=== PATIENT | female | born 1970 | race Caucasian/White ===

== ENCOUNTER 2016-08-17 17:00 | Observation (INO) | payer OTHER ==
[~2016-08-17] VITALS: Ht 162.6 cm; Wt 65.0 kg
[2016-08-17 18:48] LABS: URINE BLOOD (Dip) POC Trace-intact (NEGATIVE)
[2016-08-17 19:50] LABS: ADD SCAN DIFF NO; BASOPHILS % 0.4 % (0.0-2.0); EOSINOPHILS # 0.2 10^3/ul (0.0-0.5); EOSINOPHILS % 1.6 % (0.0-7.0); HEMATOCRIT 24.8 % (37.0-47.0); HEMOGLOBIN 7.2 g/dl (12.0-16.0); LYMPHOCYTES # 2.9 10^3/ul (0.8-2.9); LYMPHOCYTES % 30.3 % (15.0-51.0); MEAN CORPUSCULAR VOLUME 75.6 fl (82.0-101.0); MEAN PLATELET VOLUME 11.3 fl (7.4-10.4); MONOCYTE # 0.6 10^3/ul (0.3-0.9); MONOCYTES % 6.6 % (0.0-11.0); NEUTROPHIL # 5.7 10^3/ul (1.6-7.5); NEUTROPHILS % 60.6 % (39.0-77.0); PLATELET COUNT 327 10^3/UL (140-415); RED BLOOD COUNT 3.28 10^6/ul (4.20-5.40); RED CELL DISTRIBUTION WIDTH 17.7 % (11.5-14.5); WHITE BLOOD COUNT 9.4 10^3/ul (4.8-10.8)
[2016-08-17 19:56] LABS: ADD UMIC YES; URINE BILIRUBIN (Dip) NEGATIVE (NEGATIVE); URINE BLOOD (Dip) 1+ (NEGATIVE); URINE COLOR LT. YELLOW (YELLOW); URINE GLUCOSE (Dip) NEGATIVE (NEGATIVE); URINE KETONES (Dip) NEGATIVE (NEGATIVE); URINE LEUKOCYTE ESTERASE (Dip) NEGATIVE (NEGATIVE); URINE NITRITE (Dip) NEGATIVE (NEGATIVE); URINE TOTAL PROTEIN (Dip) NEGATIVE (NEGATIVE); URINE UROBILINOGEN (Dip) 0.2 E.U./dL (0.1-1.0)
[2016-08-17 20:13] LABS: ALBUMIN 3.5 g/dl (3.3-4.9)
[2016-08-17 20:14] LABS: POTASSIUM 3.9 mmol/L (3.5-5.1)
[2016-08-17 20:16] LABS: ALBUMIN/GLOBULIN RATIO 1.12; CREATININE 0.63 mg/dl (0.44-1.00); TOTAL PROTEIN 6.6 g/dl (6.1-8.1)
[2016-08-17 20:17] LABS: CALCIUM 8.6 mg/dl (8.4-10.2); SQUAMOUS EPITHELIAL CELL,UR FEW; URINE RBCS 0-2 /HPF (0)
[2016-08-17] MEDS ORDERED: SOD CHLORIDE 0.9% 1,000 ML IV ONE (20:30)
[2016-08-17] MEDS ORDERED: morphine 4 MG/ML VIAL IV STA ×2 (21:06→23:55)
[2016-08-17] MEDS ORDERED: ONDANSETRON 4 MG INJ IV STA (21:06)
--- NOTE | 2016-08-17 21:51 | RADRPT ---
PROCEDURE: XR Chest. CLINICAL INDICATION: Chest Pain. TECHNIQUE: Frontal views of the chest. COMPARISON: None. FINDINGS: The cardiomediastinal silhouette is within normal limits. The lungs are clear. No signs of pleural f luid or pneumothorax are seen. The osseous structures and soft tissues are unremarkable. IMPRESSION: No evidence for active cardiopulmonary disease. RPTAT: [facility] Physician Patricia Date Time Electronically viewed and signed by Physician Patricia on 08/17/2016 21:51 RS/
--- NOTE | 2016-08-17 22:51 | ERD ---
ER Documentation Chief Complaint Date/Time DATE: 08/17/16 TIME: 22:49 Chief Complaint "weakness for past few days history of blood transufion" HPI This is a 45-year-old female who is here for weakness for the past 2 days with a history of blood transfusion. Patient says she feels very dizzy and passed out 4 times over the past month. No other current complaints. No chest pain. No palpitations. Does complain of shortness of breath on exertion. Denies any other current issues. ROS All systems reviewed and are negative except as per history of present illness. Allergies Allergies: Coded Allergies: No Known Allergy (Unverified , 08/17/16) PMhx/Soc Medical and Surgical Hx: pt denies Surgical Hx History of Surgery: No Anesthesia Reaction: No Hx Neurological Disorder: No Hx Respiratory Disorders: No Hx Cardiac Disorders: No Hx Psychiatric Problems: No Hx Miscellaneous Medical Probl: Yes (ANEMIA, WEAKNESS) Hx Alcohol Use: No Hx Substance Use: No Hx Tobacco Use: No Smoking Status: Never smoker Physical Exam Vitals Vital Signs Date Time Temp Pulse Resp B/P Pulse Ox O2 Delivery O2 Flow Rate FiO2 08/17/16 17:03 97.9 78 18 88/45 100 Physical Exam Const: [] Head: Atraumatic Eyes: Normal Conjunctiva ENT: Normal External Ears, Nose and Mouth. Neck: Full range of motion..~ No meningismus. Resp: Clear to auscultation bilaterally Cardio: Regular rate and rhythm, no murmurs Abd: Soft, non tender, non distended. Normal bowel sounds Skin: No petechiae or rashes Back: No midline or flank tenderness Ext: No cyanosis, or edema Neur: Awake and alert Psych: Normal Mood and Affect Result Diagram: 08/17/16 1852 08/17/16 1845 Results 24 hrs Laboratory Tests Test 08/17/16 18:45 08/17/16 18:49 08/17/16 18:52 Urine Color LT. YELLOW Urine Clarity SLIGHTLY CLOUDY Urine pH 5.5 Urine Specific Volin >=1.030 Urine Ketones NEGATIVE Urine Nitrite NEGATIVE Urine Bilirubin NEGATIVE Urine Urobilinogen 0.2 E.U./dL Urine Leukocyte Esterase NEGATIVE Urine Microscopic RBC 0-2/HPF Urine Microscopic WBC 0-2/HPF Urine Squamous Epithelial Cells FEW Urine Hemoglobin 1+ Urine Glucose NEGATIVE% Urine Total Protein NEGATIVE Sodium Level 142mmol/L Potassium Level 3.9mmol/L Chloride Level 104mmol/L Carbon Dioxide Level 27mmol/L Anion Gap 15 Blood Urea Nitrogen 18mg/dl Creatinine 0.63mg/dl Glucose Level 68mg/dl Calcium Level 8.6mg/dl Total Bilirubin 0.0mg/dl Direct Bilirubin 0.00mg/dl Indirect Bilirubin 0.0mg/dl Aspartate Amino Transf (AST/SGOT) 22IU/L Alanine Aminotransferase (ALT/SGPT) 30IU/L Alkaline Phosphatase 73IU/L Troponin I < 0.012ng/ml Total Protein 6.6g/dl Albumin 3.5g/dl Globulin 3.10g/dl Albumin/Globulin Ratio 1.12 Lipase 141U/L Bedside Urine pH (LAB) 6.0 Bedside Urine Protein (LAB) Negative Bedside Urine Glucose (UA) Negative Bedside Urine Ketones (LAB) Negative Bedside Urine Blood Trace-intact Bedside Urine Nitrite (LAB) Negative Bedside Urine Leukocyte Esterase (L Negative White Blood Count 9.410^3/ul Red Blood Count 3.2810^6/ul Hemoglobin 7.2g/dl Hematocrit 24.8% Mean Corpuscular Volume 75.6fl Mean Corpuscular Hemoglobin 22.0pg Mean Corpuscular Hemoglobin Concent 29.0g/dl Red Cell Distribution Width 17.7% Platelet Count 37813^3/UL Mean Platelet Volume 11.3fl Neutrophils % 60.6% Lymphocytes % 30.3% Monocytes % 6.6% Eosinophils % 1.6% Basophils % 0.4% Nucleated Red Blood Cells % 0.0/100WBC Neutrophils # 5.710^3/ul Lymphocytes # 2.910^3/ul Monocytes # 0.610^3/ul Eosinophils # 0.210^3/ul Basophils # 0.010^3/ul Nucleated Red Blood Cells # 0.010^3/ul Current Medications Medications (Trade) Dose Ordered Sig/Stephen Route PRN Reason Start Time Stop Time Status Last Admin Dose Admin Sodium Chloride (NS) 1,000 ml @ 2,000 mls/hr Q30M ONCE IV 08/17/16 20:30 08/17/16 20:59 DC 08/17/16 20:26 Morphine Sulfate (morphine) 4 mg ONCE STAT IV 08/17/16 21:06 08/17/16 21:07 DC 08/17/16 21:15 Ondansetron HCl (Zofran Inj) 4 mg ONCE STAT IV 08/17/16 21:06 08/17/16 21:07 DC 08/17/16 21:15 Procedures/MDM EKG: Rate/Rhythm: Normal Sinus Rhythm QRS, ST, T-waves: No changes consistent w/ acute ischemia Impression: No evidence of ischemia or arrhythmia Chest X-ray 1V Interpreted by me: Soft Tissue: No acute abnormalities Bones: No acute abnormalities Mediastinum/Cardiac Silhouette/Lungs: No acute abnormalities Patient's syncopal symptoms are unstable at this time and require inpatient workup. No evidence of PE or dissection at this time but occult ischemia or fatal dysrhythmia cannot be ruled out. Patient found to be anemic, typed and crossed for 2 units transfusion. Will be admitted to observation to the hospitalist. Critical Care: Time: 45 minutes Treatments/Evaluations: Close monitoring and treatment of unstable vital signs, cardiorespiratory, and neurologic status, while maintaining tight balance of fluid, respiratory, and cardiac interventions. Departure Diagnosis: Primary Impression: Syncope Syncope type: unspecified Qualified Code: R55 - Syncope, unspecified syncope type Additional Impression: Anemia Anemia type: unspecified type Qualified Code: D64.9 - Anemia, unspecified type Condition: Serious LIZY HERNANDEZ August 17, 2016 22:51
[2016-08-18] VITALS (8 sets, daily range): BP systolic 105–127; BP diastolic 59–75; PULSE 57–70; RESP 16–20; TEMP 97.6; Ht 162.6 cm; Wt 65.0 kg
[2016-08-18] MEDS ORDERED: morphine 2 MG INJ IV PRN (02:00)
[2016-08-18] MEDS ORDERED: ALBUTEROL/IPRATROPIUM (NEB) 3 ML AMP HHN PRN (02:00)
[2016-08-18] MEDS ORDERED: ONDANSETRON 4 MG INJ IV PRN (02:00)
[2016-08-18] MEDS ORDERED: NACL 0.9% 3 ML SYG IV SCH (02:00)
[2016-08-18] MEDS ORDERED: ACETAMINOPHEN 325 MG TAB PO PRN (02:00)
--- NOTE | 2016-08-18 03:14 | HP ---
DATE OF ADMISSION: 08/17/2016 CHIEF COMPLAINT: Generalized weakness and loss of consciousness. HISTORY OF PRESENT ILLNESS: The patient is a 45-year-old female with a history of anemia who presen staci to the emergency department with the above stated chief complaint. She stated that, especially over the past few days, she has been experiencing progressively worsening weakness, and she said she actually has had near syncope and also on a few occasions she actually had loss of consciousness. She denied any hematemesis, bright red blood per rectum, or dark stool. She also denied vaginal ble eding. She denied chest pain, did report occasional shortness of breath as well as palpitations. When she presented to the ER, blood pressure was 88/45, heart rate 78, respiratory rate 18, temperat ure 97.9, oxygen saturation 100% on room air. Laboratory value shows hemoglobin of 7.2 with MCV of 75. Glucose was 68. Otherwise, CBC and CMP are within acceptable range. Chest x-ray shows no evid ence of acute cardiopulmonary disease. An order for 2 units of PRBCs has already been done, and cur rently the patient is awaiting admission. REVIEW OF SYSTEMS: A 12-point review of systems was performed, negative except as mentioned in HPI. PAST MEDICAL HISTORY: Anemia, requiring blood transfusions. PAST SURGICAL HISTORY: Denies. SOCIAL HISTORY: Denied a history of tobacco, alcohol, or illicit drug use. ALLERGIES: NO KNOWN DRUG ALLERGIES. HOME MEDICATIONS: None. PHYSICAL EXAMINATION: VITAL SIGNS: Currently stable. GENERAL: The patient was sleepy but arousable, and she was answering questions appropriately. HEENT: No obvious head deformity. Pupils are reactive to light. Extraocular muscles intact. CARDIOVASCULAR: Regular rate and rhythm with no extra sounds. LUNGS: Clear. ABDOMEN: Soft, nontender, nondistended. Positive bowel sounds. EXTREMITIES: No edema. NEUROLOGIC: No focal deficits. LABORATORY DATA: Hemoglobin 7.2. Glucose 68. Otherwise, CBC and CMP are within normal limits. IMAGING: Chest x-ray: No acute findings. IMPRESSION: 1. Microcytic anemia, evaluate for blood loss and iron deficiency. 2. Generalized weakness and syncope, most likely secondary to above. 3. Hypoglycemia. PLAN: Admit to telemetry unit. Continue with blood transfusion. Her symptom of generalized weakne ss and syncope seems most likely secondary to her anemia. As mentioned, she will receive 2 units of PRBCs now. Depending on her clinical course, we will consider a full syncope workup, but for now i t just seems obvious that her symptoms are secondary to anemia. We will check for iron panel and fe rritin, and I will order pelvic ultrasound to evaluate for uterine fibroids contributing to her anem ia. We will monitor her blood glucose closely given presentation of hypoglycemia. She will receive IV fluids with dextrose for now. Further workup and management per clinical course. Dictated By: LIZY LOBO/VENKATA Conf#: [id number] DID#: [id number]
[2016-08-18] MEDS ORDERED: LORAZEPAM 2 MG INJ IV ONE ×2 (03:30→04:30)
[2016-08-18] MEDS ORDERED: PANTOPRAZOLE 40 MG INJ IV SCH (06:00)
[2016-08-18 07:08] LABS: ADD SCAN DIFF NO
[2016-08-18 07:20] LABS: BASOPHILS % 0.4 % (0.0-2.0); EOSINOPHILS # 0.1 10^3/ul (0.0-0.5); EOSINOPHILS % 1.1 % (0.0-7.0); HEMOGLOBIN 9.2 g/dl (12.0-16.0); MEAN CORPUSCULAR HEMOGLOBIN 24.1 pg (29.0-33.0); MEAN CORPUSCULAR HGB CONC 30.7 g/dl (32.0-37.0); MEAN CORPUSCULAR VOLUME 78.7 fl (82.0-101.0); MEAN PLATELET VOLUME 10.9 fl (7.4-10.4); MONOCYTE # 0.5 10^3/ul (0.3-0.9); MONOCYTES % 4.9 % (0.0-11.0); NEUTROPHIL # 8.2 10^3/ul (1.6-7.5); NEUTROPHILS % 75.1 % (39.0-77.0); PLATELET COUNT 308 10^3/UL (140-415); RED BLOOD COUNT 3.81 10^6/ul (4.20-5.40); RED CELL DISTRIBUTION WIDTH 19.2 % (11.5-14.5); WHITE BLOOD COUNT 10.9 10^3/ul (4.8-10.8)
[2016-08-18 07:39] LABS: IRON 30 ug/dl (35-150)
[2016-08-18 07:41] LABS: ALBUMIN/GLOBULIN RATIO 1.11; CALCIUM 7.9 mg/dl (8.4-10.2); CREATININE 0.55 mg/dl (0.44-1.00); MAGNESIUM 2.1 mg/dl (1.7-2.5); POTASSIUM 4.4 mmol/L (3.5-5.1); TOTAL PROTEIN 5.7 g/dl (6.1-8.1)
[2016-08-18 07:49] LABS: TOTAL IRON BINDING CAPACITY 371 ug/dl (241-421)
[2016-08-18 08:15] LABS: FERRITIN 5.6 ng/ml (6.2-137.0)
[2016-08-18] MEDS ORDERED: ALPRAZOLAM 0.25 MG TAB PO PRN (10:00)
--- NOTE | 2016-08-18 13:58 | DS ---
DATE OF ADMISSION: 08/17/2016 DATE OF DISCHARGE: 08/18/2016 (Left against medical advice). ADMITTING DIAGNOSES: 1. Microcytic ,hypochromic anemia. 2. Iron deficiency. 3. Hypoglycemia. 4. Generalized weakness and syncope, most probably secondary to symptomatic anemia. HOSPITAL COURSE: This is a 45-year-old female with history of anemia who required prior blood transfusions, who came to the emergency room with generalized weakness and presyncope. The patient was noticed to have significant anemia with a hemoglobin and hematocrit of 7.2 and 24.8 respectively. The patient denied any obvious bleeding including any hematemesis , melena, hematochezia, hematuria or vaginal bleeding. The patient denied any chest pain. Provided the patient's history of present illness and the diagnostic findings, a clinical decision was made to admit the patient to inpatient setting to have her further evaluated. The patient was admitted to inpatient telemetry floor. The patient was transfused with 2 units of PRBCs with improvement in the patient's H and H to 9.2 and 30.0 respectively. The patient's iron panel showed iron deficiency with low iron and low iron saturation with a normal TIBC. It was highly suspected that the patient's presyncope was most probably secondary to underlying symptomatic anemia. Further workup including stool for OB was pending. Meanwhile, the patient wanted to leave the hospital against medical advice. The patient was instructed about the consequences of leaving the hospital against medical advice including the possibly of . Nevertheless, the patient wanted to leave the hospital against medical advice. No discharge planning was done and no discharge prescriptions were given since the patient left the hospital against medical advice. PERTINENT LABORATORY AND DIAGNOSTIC DATA: 1. Latest CBC: WBC 10.9, hemoglobin 9.2, hematocrit 30.0, platelet count 308. 2. Latest BMP: Sodium 137, potassium 4.4, carbon dioxide 25, anion gap 5, BUN 15, creatinine 0.57, glucose 92, calcium 7.9, magnesium 2.1, iron 30, TIBC 371, oxygen saturation 8. 3. Chest x-ray. No evidence of acute cardiopulmonary disease. The case and management of this patient was fully discussed with Dr. De La O. ABHINAV DE LA O MD, AM/VENKATA Conf#: [id number] DID#: [id number] MTDD
== END 2016-08-18 12:23 | disposition left against medical advice (07) ==
LOC: E/R 17:00 → MS4 22:09
PROVIDERS: ADMIT Internal Medicine; ATTEND Internal Medicine
DX: D50.9 Iron deficiency anemia, unspecified (principal); E16.2 Hypoglycemia, unspecified; R55 Syncope and collapse; R53.1 Weakness
CPT/HCPCS: 36415; 36430; 71010; 80053; 81001; 82728; 83540; 83690; 83735; 84484; 85025; 86850; 86900; 86901; 86920; 87040; 87081; 87086; 93005; 96361; 96374; 96375; 96376; C9113; J2060; J2270; J2405; J7030; P9016; Z7500; Z7502; Z7610; 81003; G0378